=== PATIENT | female | born 1995 | race Caucasian/White ===

== ENCOUNTER 2016-11-27 22:17 | Emergency (ER) | payer OTHER ==
[2016-11-28 00:38] VITALS: BP 122/79
== END 2016-11-28 00:38 | disposition home or self-care (01) ==
LOC: ED 22:17
DX: S39.012A Strain of muscle, fascia and tendon of lower back, initial encounter (principal); V49.9XXA Car occupant (driver) (passenger) injured in unspecified traffic accident, initial encounter; Y93.89 Activity, other specified; Y99.8 Other external cause status; Y92.89 Other specified places as the place of occurrence of the external cause

== ENCOUNTER 2017-05-26 06:11 | Inpatient (IN) | payer OTHER ==
[~2017-05-26] VITALS: Ht 170.2 cm; Wt 106.6 kg
[2017-05-26 07:59] LABS: PLATELET COUNT 357 x10^3mcL (130-400); RED CELL DISTRIBUTION WIDTH 12.8 % (11.5-14.5)
[2017-05-26 08:04] LABS: BASOPHIL % 0 % (0-2)
[2017-05-26 08:13] LABS: UA SPECIFIC GRAVITY >=1.030 (1.005-1.035); microscopic required? YES; urine erythrocyte NEGATIVE (NEGATIVE)
[2017-05-26 08:19] LABS: CARBON DIOXIDE 26.8 mmol/L (21-32); CHLORIDE SERUM 104 mmol/L (98-107); CREATININE SERUM 0.7 mg/dL (0.6-1.0); GFR1 > 60 mL/min; GLUCOSE SERUM 111 mg/dL (74-106); POTASSIUM SERUM 3.8 mmol/L (3.5-5.1); SODIUM SERUM 140 mmol/L (136-145)
[2017-05-26 08:23] LABS: ALBUMIN 3.4 g/dL (3.4-5.0); ALKALINE PHOSPHATASE 89 U/L (46-116); ALT/SGPT 161 U/L (14-59); AMYLASE 50 U/L (25-115); AST/SGOT 118 U/L (15-37); BILIRUBIN TOTAL 0.6 mg/dL (0.20-1.00); CHOLESTEROL 137 mg/dL (<200); LIPASE 215 IU/L (73-393); TOTAL PROTEIN, SERUM 7.7 g/dL (6.4-8.2)
[2017-05-26 08:24] LABS: HDL CHOLESTEROL 32 mg/dL (40-60)
[2017-05-26 11:10] LABS: MAGNESIUM 2.2 mg/dL (1.8-2.4); PHOSPHOROUS 2.9 mg/dL (2.5-4.9)
[2017-05-26 11:19] LABS: CHOLESTEROL/HDL RATIO 4.1
[2017-05-26 11:27] LABS: T3 TOTAL 1.76 ng/mL
[2017-05-26 12:12] LABS: AMPHETAMINE QUAL UR NONE DETECTED (NEG <=1000)
[2017-05-26 12:13] LABS: FREE T4 1.64 ng/dL (0.76-1.46); T4(THYROXINE) 13.2 ug/dL (4.7-13.3)
[2017-05-26 13:15] VITALS: BP 124/70
[2017-05-26 18:18] VITALS: BP 115/66
[2017-05-26 21:23] VITALS: BP 104/69
[2017-05-27 05:59] VITALS: BP 106/67
[2017-05-27 07:25] LABS: BASOPHIL % 0.2 % (0-2); PLATELET COUNT 333 x10^3mcL (130-400); RED CELL DISTRIBUTION WIDTH 12.9 % (11.5-14.5)
[2017-05-27 07:34] LABS: CALCIUM 8.6 mg/dL (8.5-10.1); CARBON DIOXIDE 25.8 mmol/L (21-32); CHLORIDE SERUM 106 mmol/L (98-107); CREATININE SERUM 0.8 mg/dL (0.6-1.0); GFR1 > 60 mL/min; GLUCOSE SERUM 96 mg/dL (74-106); POTASSIUM SERUM 4.2 mmol/L (3.5-5.1); SODIUM SERUM 142 mmol/L (136-145)
[2017-05-27 09:28] VITALS: BP 102/60; BP 131/69
[2017-05-27 12:44] VITALS: BP 98/61; Ht 170.2 cm; Wt 106.6 kg
[2017-05-27] MEDS ORDERED: IBUPROFEN800 MG PO (15:27)
== END 2017-05-27 16:47 | disposition home or self-care (01) ==
LOC: ED 06:11 → DU 09:57
PROVIDERS: Emergency Medicine; Family Medicine
DX: K80.70 Calculus of gallbladder and bile duct without cholecystitis without obstruction (principal); N17.0 Acute kidney failure with tubular necrosis; K76.0 Fatty (change of) liver, not elsewhere classified; E66.9 Obesity, unspecified
CPT/HCPCS: 83880; 84439; J0696; J1885; J7030; Q0092

== ENCOUNTER 2017-08-22 23:44 | Emergency (ER) | payer OTHER ==
[~2017-08-22] VITALS: Ht 170.2 cm; Wt 104.3 kg
[~2017-08-22 23:44] MED LIST: IBUPROFEN800 MG PO
[2017-08-22 23:57] VITALS: Ht 170.2 cm; Wt 104.3 kg
[2017-08-23 00:28] LABS: CALCIUM 8.7 mg/dL (8.5-10.1); CARBON DIOXIDE 28.6 mmol/L (21-32); CHLORIDE SERUM 101 mmol/L (98-107); CREATININE SERUM 0.8 mg/dL (0.6-1.0); GFR1 > 60 mL/min; GLUCOSE SERUM 108 mg/dL (74-106); POTASSIUM SERUM 3.7 mmol/L (3.5-5.1); SODIUM SERUM 138 mmol/L (136-145)
[2017-08-23 00:32] LABS: ALBUMIN 3.4 g/dL (3.4-5.0); ALKALINE PHOSPHATASE 65 U/L (46-116); ALT/SGPT 25 U/L (14-59); AST/SGOT 31 U/L (15-37); BILIRUBIN TOTAL 0.3 mg/dL (0.20-1.00); LIPASE 180 IU/L (73-393); TOTAL PROTEIN, SERUM 7.2 g/dL (6.4-8.2)
[2017-08-23 02:36] VITALS: BP 110/55
== END 2017-08-23 02:36 | disposition home or self-care (01) ==
LOC: ED 23:44
PROVIDERS: Emergency Medicine
DX: K80.20 Calculus of gallbladder without cholecystitis without obstruction (principal)
CPT/HCPCS: J1885

== ENCOUNTER 2018-12-08 22:20 | Emergency (ER) | payer OTHER ==
[~2018-12-08] VITALS: Ht 170.2 cm; Wt 100.7 kg
[2018-12-08 22:25] VITALS: Ht 170.2 cm; Wt 100.7 kg
[2018-12-08 23:14] LABS: BASOPHIL % 0.3 % (0-2); PLATELET COUNT 305 x10^3mcL (130-400)
[2018-12-09 02:11] VITALS: BP 119/70
== END 2018-12-09 02:11 | disposition home or self-care (01) ==
LOC: ED 22:20
DX: O20.0 Threatened abortion (principal)
CPT/HCPCS: 36415; J2405

== ENCOUNTER 2019-08-10 16:05 | Emergency (ER) | payer OTHER ==
[~2019-08-10] VITALS: Ht 170.2 cm; Wt 89.4 kg
[2019-08-10 16:35] VITALS: Ht 170.2 cm; Wt 89.4 kg
[2019-08-10 18:04] VITALS: BP 110/72
== END 2019-08-10 18:04 | disposition home or self-care (01) ==
LOC: ED 16:05
DX: S62.624D Displaced fracture of middle phalanx of right ring finger, subsequent encounter for fracture with routine healing (principal); Z90.49 Acquired absence of other specified parts of digestive tract; X58.XXXD Exposure to other specified factors, subsequent encounter
CPT/HCPCS: Q0092

== ENCOUNTER 2019-11-24 12:01 | Emergency (ER) | payer OTHER, SELFPAY ==
[~2019-11-24] VITALS: Ht 170.2 cm; Wt 82.6 kg
[2019-11-24 12:36] VITALS: Ht 170.2 cm; Wt 82.6 kg
[2019-11-24 14:58] LABS: BASOPHIL % 0.2 % (0-2); PLATELET COUNT 270 x10^3mcL (130-400); RED CELL DISTRIBUTION WIDTH 13.1 % (11.5-14.5)
[2019-11-24 16:03] VITALS: BP 115/76
== END 2019-11-24 16:03 | disposition home or self-care (01) ==
LOC: ED 12:01
PROVIDERS: Emergency Medicine
DX: A08.4 Viral intestinal infection, unspecified (principal); Z20.828 Contact with and (suspected) exposure to other viral communicable diseases
CPT/HCPCS: U0003-CS

== ENCOUNTER 2020-04-04 16:33 | Emergency (ER) | payer MEDICAID ==
[~2020-04-04] VITALS: Ht 170.2 cm; Wt 79.4 kg
[2020-04-04 16:57] VITALS: Ht 170.2 cm; Wt 79.4 kg
[2020-04-04 18:43] LABS: UA SPECIFIC GRAVITY >=1.030 (1.005-1.035); microscopic required? YES; urine erythrocyte 2+ (NEGATIVE)
[2020-04-04 18:44] LABS: BASOPHIL % 0.2 % (0-2); PLATELET COUNT 285 x10^3mcL (130-400); RED CELL DISTRIBUTION WIDTH 12.6 % (11.5-14.5)
[2020-04-04 18:48] LABS: CALCIUM 9.3 mg/dL (8.5-10.1); CARBON DIOXIDE 27.9 mmol/L (21-32); CHLORIDE SERUM 103 mmol/L (98-107); CREATININE SERUM 0.7 mg/dL (0.6-1.0); GFR1 > 60 mL/min; GLUCOSE SERUM 93 mg/dL (74-106); POTASSIUM SERUM 3.8 mmol/L (3.5-5.1); SODIUM SERUM 138 mmol/L (136-145)
[2020-04-04 19:37] VITALS: BP 122/65
== END 2020-04-04 19:37 | disposition home or self-care (01) ==
LOC: ED 16:33
PROVIDERS: Emergency Medicine
DX: O20.0 Threatened abortion (principal); O23.599 Infection of other part of genital tract in pregnancy, unspecified trimester; Z37.9 Outcome of delivery, unspecified; Z90.49 Acquired absence of other specified parts of digestive tract; Z3A.08 8 weeks gestation of pregnancy
CPT/HCPCS: J2405; J7030